=== PATIENT | male | born 1955 | race Caucasian/White ===

== ENCOUNTER 2018-04-18 14:28 | Inpatient (IN) | payer OTHER ==
[~2018-04-18] VITALS: Ht 193 cm; Wt 116.1 kg
[2018-04-18 14:37] VITALS: BP 199/94
[2018-04-18] MEDS ORDERED: GLUCOTROL5 MG PO (14:49)
[2018-04-18] MEDS ORDERED: COZAAR 25 MG TA25 M1 PO (14:49)
[2018-04-18] MEDS ORDERED: CARVEDILOL12.5 MG PO (14:49)
[2018-04-18] MEDS ORDERED: LIPITOR 20 MG T20 M1 PO (14:49)
[2018-04-18] MEDS ORDERED: ASPIR 8181 MG PO (14:49)
[2018-04-18] MEDS ORDERED: FLOMAX0.4 MG PO (14:50)
[2018-04-18 15:02] LABS: ABSOLUTE BASOPHILS 0.1 thou/uL (0.0-0.2); ABSOLUTE EOSINOPHILS 0.4 thou/uL (0.0-0.7); ABSOLUTE LYMPHOCYTES 1.2 thou/uL (0.8-5.3); ABSOLUTE MONOCYTES 0.5 thou/uL (0.0-1.2); ABSOLUTE NEUTROPHILS 5.9 thou/uL (1.6-8.1); BASOPHILS 1.1 %; HEMATOCRIT 44.1 % (42.0-52.0); HEMOGLOBIN 15.6 gm/dL (14.0-18.0); LYMPHOCYTES 14.5 %; MCH 29.5 pg (26.0-34.0); MCHC 35.3 g/dL (28.0-37.0); MCV 83.4 fL (80.0-100.0); MONOCYTES 5.8 %; MPV 10.4 fl. (7.2-11.1); NUCLEATED RBCS 0 /100WBC; PLATELET COUNT* 135 thou/uL (150-400); POLYS 73.6 %; RBC 5.29 mil/uL (4.50-6.00); RDW-CV 13.7 % (10.5-14.5)
[2018-04-18 15:10] LABS: ANION GAP 4 mmol/L (7-16); BUN 22 mg/dL (7-18); CALCIUM 8.9 mg/dL (8.5-10.1); CHLORIDE 103 mmol/L (98-107); CO2 30 mmol/L (21-32); CREATININE 1.3 mg/dL (0.6-1.3); GLUCOSE 225 mg/dL (70-99); POTASSIUM 4.4 mmol/L (3.5-5.1); SODIUM 137 mmol/L (136-145)
[2018-04-18 15:13] LABS: APTT 29.4 Seconds (25.0-31.3); INR 1.1; PROTIME 11.4 Seconds (9.20-11.50)
[2018-04-18 15:21] LABS: ALBUMIN 3.5 g/dL (3.4-5.0); ALKALINE PHOSPHATASE 68 U/L (46-116); NT-PRO BRAIN NAT PEPTIDE 69 pg/mL (<300); SGOT 18 U/L (15-37); SGPT 46 U/L (30-65); TOTAL BILIRUBIN 0.6 mg/dL (<0.1-1.0); TOTAL PROTEIN 7.2 g/dL (6.4-8.2); TROPONIN-I LEVEL <0.06 ng/mL (<0.06)
[2018-04-18 18:10] VITALS: BP 156/82
[2018-04-18 20:00] VITALS: BP 180/91
[2018-04-19] VITALS: BP 132/75
[2018-04-19 02:16] LABS: URINE BILIRUBIN NEGATIVE (Negative); URINE BLOOD NEGATIVE (Negative); URINE CLARITY CLEAR; URINE COLOR YELLOW; URINE GLUCOSE-RANDOM TRACE (Negative); URINE KETONES NEGATIVE (Negative); URINE LEUKOCYTES-REFLEX NEGATIVE (Negative); URINE NITRITE-REFLEX NEGATIVE (Negative); URINE PROTEIN NEGATIVE (Negative)
[2018-04-19 04:00] VITALS: BP 122/67
[2018-04-19 08:45] VITALS: BP 121/73
[2018-04-19 12:00] VITALS: BP 134/74
[2018-04-19 18:56] VITALS: BP 143/86
[2018-04-19 21:00] VITALS: BP 132/68
[2018-04-20 04:00] VITALS: BP 136/70
[2018-04-20 07:36] LABS: CHOLESTEROL 97 mg/dL (<200); HDL CHOLESTEROL 26 mg/dL (>40); LDL CHOLESTEROL 54 mg/dL (<100); TC:HDL 3.7 Ratio (Not establshd); TRIGLYCERIDE 85 mg/dL (<150); VLDL 17 mg/dL (<40)
[2018-04-20 07:37] LABS: SERUM ASSESSMENT Clear
[2018-04-20 08:30] VITALS: BP 130/58
[2018-04-20 12:20] VITALS: BP 145/81
[2018-04-20 16:00] VITALS: BP 125/66
--- NOTE | 2018-04-20 16:29 | EKG ---
[place] [address] ELECTROCARDIOGRAM REPORT Name: ZANE MONTEIOR Room: [address] ADM IN [facility].#: [id number] Admission: 04/18/18 Attend Phys: Kajal Pichardo MD Discharge: Date of : 59 Report #: [id number] THIS REPORT FOR: //name// [facility] ED Test Date: 2018-04-18 Test Time: 14:42:34 Pat Name: ZANE MONTEIRO Department: Room: [facility] Gender: M Pantographer: Terence STAFFORD : 1955 Requested By: Konstantin Mccann Order Number: [id number] MD: Dariusz Romero Measurements Intervals [place] Rate: 69 P: 39 [place]: 165 QRS: 6 QRSD: 104 T: 40 QT: 383 QTc: 411 Interpretive Statements Sinus rhythm No previous ECG available for comparison Electronically Signed On 04-20-2018 16:29:07 [employer] by Dariusz Romero [email or web address] <ELECTRONICALLY SIGNED> By: Dariusz Romero MD, [facility] 04/20/18 1629 1442 144 Dariusz Romero MD, FACC /EPI
[2018-04-20 20:00] VITALS: BP 135/70
[2018-04-21] VITALS: BP 117/63
[2018-04-21 04:00] VITALS: BP 117/60
[2018-04-21 08:00] VITALS: BP 136/74
[2018-04-21 12:00] VITALS: BP 127/68
--- NOTE | 2018-04-21 13:52 | CON ---
[address] [address] CONSULTATION Name: ZANE MONTEIRO Room: [address] IN [facility]#: [id number] Admission: 04/18/18 Attend Phys: Kajal Pichardo MD Discharge: Date of : 59 Report #: [id number] THIS REPORT FOR: //name// CC: Kajal Horn DATE OF SERVICE: 04/19/2018 HISTORY OF PRESENT ILLNESS: This is a 62-year-old male patient who was evaluated by me because of paresthesias in all 4 extremities. It started last Saturday. It started spontaneously. He was admitted to [facility]. I do not have any record from there. Apparently, they did an MRI on him, which was unremarkable. He was dismissed and he continued to have those symptoms and he was seen here. He indicates he is better than he was last Saturday. He was diagnosed with diabetes. He denies any head trauma. His blood pressure was rather high when he came in, but it has been pretty persistent here. REVIEW OF SYSTEMS: Positive for recent diagnosis of diabetes. He has this paraesthesia. He was found to be hypertensive. He indicates otherwise he is pretty healthy. He works in construction. He never had any head trauma. I carried out the 14-point review of system and that appear unremarkable. PAST MEDICAL HISTORY: Negative for any stroke. FAMILY HISTORY: Unremarkable. SOCIAL HISTORY: He does not smoke or drink any alcohol. PHYSICAL EXAMINATION: Indicate the patient is alert, responsive, able to follow simple and complex command. His speech, concentration, fund of knowledge and memory is at his baseline. His cranial nerve examination is unremarkable. His strength looks mostly unremarkable, but he takes a long time to do the position sense. He says the touch is altered in both feet. It is to some extent altered in both hands. His reflexes are diminished. There is no meningeal or cerebellar sign. Cardiac examination is unremarkable. He is a very well developed individual who does not have any dysmorphic features of eyes, ears and face. His vision and hearing looks adequate. His blood pressure here is 121/73, respirations 18, pulse is 61, temperature is 97.8. His head CT showed a question of stroke. He apparently had a CT angiogram of the head and neck at [facility], it was unremarkable, that report is not available to me. IMPRESSION: I think we need to determine if the patient's CT finding is real or not. For that, I think he will need a repeat MRI. If MRI does show stroke, then we will follow the patient accordingly. If MRI does not show any stroke, [place] [address] CONSULTATION Name: ZANE MONTEIRO Room: [address] IN [facility]#: [id number] Admission: 04/18/18 Attend Phys: Kajal Pichardo MD Discharge: Date of : 59 Report #: [id number] then most likely the symptoms are because of neuropathy and that neuropathy is most likely secondary to diabetes. RECOMMENDATION: I talked to the patient about it. We will get the MRI done and we will see if the finding on CT scan is real or artefact. <ELECTRONICALLY SIGNED> By: Jamie Sparks MD 04/21/18 1352 1105 [id number] Sparks MD /nt
[2018-04-21 16:00] VITALS: BP 110/65
[2018-04-21 20:29] VITALS: BP 151/78
[2018-04-22] VITALS (11 sets, daily range): BP systolic 113–177; BP diastolic 56–96
[2018-04-22] MEDS ORDERED: ATORVASTATIN CA40 MG PO (09:50)
--- NOTE | 2018-04-22 14:47 | TEE ---
[place] [address] TRANSESOPHAGEAL ECHOCARDIOGRAM Name: ZANE MONTEIRO Room: [address] IN [facility]#: [id number] Admission: 04/18/18 Attend Phys: Kajal Pichardo, Discharge: Date of : 59 Date of Service: 04/22/18 1447 Report #: [id number] THIS REPORT FOR: //name// APPROVED REPORT Study performed: 04/22/2018 09:18:26 EXAM: Transesophageal Echocardiogram Patient Location: In-Patient Room #: 220 Status: routine BSA: 2.48 HR: 64 bpm BP: 173/92 mmHg Rhythm: NSR Other Information Study Quality: Good Indications CVA/TIA HTN Echo Enhancing Agent Indication: Rule out Shunt Agent(s) / Amount(s) Used: Agitated Saline 10 cc Procedure After obtaining informed consent, patient underwent transesophageal echo in the [employer]. Type of Sedation : Conscious Sedation Sedation was administered by Shila Melgar RN. Sedation start time: 940 Case end Time: 952 Sedation was achieved intravenously with: Versed (4) Fentanyl (100) Transesophageal probe was inserted and advanced into esophagus without difficulty by Dariusz Romero MD, FACC. Echo enhancement indication: R/O Septal defect. Echo enhancement agent administered: Agitated Saline The SUDHEER was performed without complications. Throughout the procedure, the blood pressure, pulse oximetry, cardiac rhythm, and rate were monitored. The patient tolerated the procedure without adverse effects. Recovery from conscious sedation was uneventful and [place] [address] TRANSESOPHAGEAL ECHOCARDIOGRAM Name: ZANE MONTEIRO Room: [address]#: [id number] Admission: 04/18/18 Attend Phys: Kajal Pichardo, Discharge: Date of : 59 Date of Service: 04/22/18 1447 Report #: [id number] Left Ventricle The left ventricle is normal size. There is normal LV segmental wall motion. There is normal left ventricular wall thickness. Left ventricular systolic function is normal. LVEF is 55-60%. Right Ventricle The right ventricle is normal size. The right ventricular systolic function is normal. Atria No thrombus is visualized in the left atrium or appendage. The left atrium size is normal. Interatrial septum is intact without evidence of ASD or PFO. Right atrium is dilated. Aortic Valve The aortic valve is normal in structure. No aortic regurgitation is present. There is no aortic valvular stenosis. Mitral Valve The mitral valve is normal in structure. There is no mitral valve regurgitation noted. No evidence of mitral valve stenosis. Tricuspid Valve The tricuspid valve is normal in structure. There is no tricuspid valve regurgitation noted. Pulmonic Valve The pulmonary valve is normal in structure. There is no pulmonic valvular regurgitation. Great Vessels The aortic root is normal in size. Pericardium There is no pericardial effusion. <Conclusion> The left ventricle is normal size. There is normal left ventricular wall thickness. Left ventricular systolic function is normal. LVEF is 55-60%. No thrombus is visualized in the left atrium or appendage. The left atrium size is normal. Interatrial septum is intact without evidence of [place] [address] TRANSESOPHAGEAL ECHOCARDIOGRAM Name: ZANE MONTEIRO Room: [address] IN ..#: [id number] Admission: 04/18/18 Attend Phys: Kajal Pichardo, Discharge: Date of : 59 Date of Service: 04/22/181446 Report #: [id number] No intracardiac source for embolus identified. <ELECTRONICALLY SIGNED> By: Dariusz Romero MD, FACC 04/22/18 1447 144 46 Dariusz Romero MD, FACC /INF
[2018-04-23] VITALS (7 sets, daily range): BP systolic 121–154; BP diastolic 57–78
[2018-04-23 02:08] LABS: GLYCOHEMOGLOBIN (HGB A1C) 7.5 % (4.8-5.6)
== END 2018-04-23 13:42 | disposition home or self-care (01) | DRG 66 ==
LOC: M.ERS 14:28 → M.2W 15:50 → M.TBA-ER 15:50 → M.2W 18:22
PROVIDERS: Family Medicine; Internal Medicine; Psychiatry & Neurology Neuromuscular Medicine; ADMIT Internal Medicine
DX: I63.9 Cerebral infarction, unspecified (principal); I10 Essential (primary) hypertension; E78.5 Hyperlipidemia, unspecified; E11.40 Type 2 diabetes mellitus with diabetic neuropathy, unspecified; Z88.0 Allergy status to penicillin; Z79.82 Long term (current) use of aspirin; Z79.899 Other long term (current) drug therapy